=== PATIENT | male | born 1960 | race American Indian/Alaskan Native ===

== ENCOUNTER 2017-11-13 04:52 | Emergency (ER) | payer BC ==
[2017-11-13 05:34] LABS: Basophils # (Auto) 0.1 K/mm3 (0.0-0.1); Basophils % (Auto) 0.8 % (0.0-1.8); Eosinophils # (Auto) 0.2 K/mm3 (0.0-0.4); Eosinophils % (Auto) 1.8 % (0.0-4.3); Hematocrit 39.9 % (35.5-45.6); Hemoglobin 13.3 gm/dl (11.8-15.2); Lymphocytes # (Auto) 2.3 K/mm3 (1.2-5.4); Lymphocytes % (Auto) 25.5 % (13.4-35.0); Mean Corpuscular HGB Conc 33 % (32-34); Mean Corpuscular Hemoglobin 31 pg (28-32); Mean Corpuscular Volume 92 fl (84-94); Monocytes # (Auto) 0.5 K/mm3 (0.0-0.8); Monocytes % (Auto) 6.1 % (0.0-7.3); Platelet Count 325 K/mm3 (140-440); Red Blood Count 4.34 M/mm3 (3.65-5.03); Red Cell Distribution Width 13.1 % (13.2-15.2)
[2017-11-13 05:44] LABS: BUN/Creatinine Ratio 16; Blood Urea Nitrogen 11 mg/dL (9-20); Calcium 9.3 mg/dL (8.4-10.2); Hemolysis Index 5
--- NOTE | 2017-11-13 10:06 | XRay Report ---
LEFT FOOT, 3 views: History: Left foot pain. Articulation at the second metatarsophalangeal joint appears abnormal. There may be lateral subluxation and possible fracture at the base of the second toe. Please correlate with the images and the patient. The remaining bony structures are grossly intact. No erosive joint pathology. Mild degenerative changes are noted in the midfoot. Small plantar spur. IMPRESSION: Question abnormality of the second metatarsophalangeal joint as described.
--- NOTE | 2017-11-13 10:27 | Emergency Department Report ---
HPI - General Chief Complaint: Extremity Problem,Nontraumatic Time Seen by Provider: 11/13/17 09:40 - HPI HPI: 57-year-old -[place] male presents to the emergency department with swelling of the left foot and left foot pain since waking up this morning. He denies any recent trauma. He denies any skin color change or any lesions or rash. He's been using a set of crutches and limping around. He was dropped off to be seen by his . He has a medical history of diabetes on both pills and insulin. No recent travel or sick contacts at home. He does not have a primary care physician. He did not take anything for his symptoms prior presentation. ED Past Medical Hx - Past Medical History Previous Medical History?: Yes Hx Diabetes: Yes - Surgical History Past Surgical History?: No - Social History Smoking Status: Never Smoker Substance Use Type: None - Medications Home Medications: Home Medications Medication Instructions Recorded Confirmed Last Taken Type HYDROcodone/APAP 5-325 [[place] 1 each PO Q6H PRN #10 tablet 11/13/17 Unknown Rx 5-325 mg TAB] ED Review of Systems ROS: Stated complaint: FOOT PAIN Other details as noted in HPI Comment: All other systems reviewed and negative Constitutional: denies: chills, fever Eyes: denies: eye pain, eye discharge, vision change ENT: denies: ear pain, throat pain Respiratory: denies: cough, shortness of breath, wheezing Cardiovascular: denies: chest pain, palpitations Gastrointestinal: denies: abdominal pain, nausea, diarrhea Genitourinary: denies: urgency, dysuria Musculoskeletal: joint swelling, arthralgia Skin: denies: rash, lesions Neurological: denies: headache, weakness, paresthesias Physical Exam - Physical Exam Vital Signs: Vital Signs 11/13/17 11/13/17 04:54 05:04 Temperature 98.3 F 98.3 F Pulse Rate 71 71 Respiratory 18 18 Rate Blood Pressure 138/70 138/70 O2 Sat by Pulse 98 98 Oximetry ED Course Vital Signs 11/13/17 11/13/17 04:54 05:04 Temperature 98.3 F 98.3 F Pulse Rate 71 71 Respiratory 18 18 Rate Blood Pressure 138/70 138/70 O2 Sat by Pulse 98 98 Oximetry ED Medical Decision Making - Lab Data Result diagrams: 11/13/17 05:23 11/13/17 05:23 Critical care attestation.: If time is entered above; I have spent that time in minutes in the direct care of this critically ill patient, excluding procedure time. ED Disposition Clinical Impression: Left foot pain, Foot swelling Disposition: TO HOME OR SELFCARE Is pt being admited?: No Condition: Stable Instructions: Arthralgia (ED) Additional Instructions: Please follow up with a primary care physician in the next few days. I've given him a referral for a local emergency room technician, Dr. Freeman, and a local orthopedist, Dr. Masterson, to follow-up with regarding your foot pain. Return to the emergency Department with any worsening of her symptoms, development of any skin color change or ulcerations or wounds, or with any acute distress. You have been prescribed a medication that is sedating and therefore should not be taken prior to driving, working, and responsible for children and in no way should be mixed with alcohol of any quantity. Prescriptions: HYDROcodone/APAP 5-325 [[place] 5-325 mg TAB] 1 each PO Q6H PRN #10 tablet PRN Reason: Pain Referrals: PRIMARY CARE, [Primary Care Provider] - 3-5 Days SARAH FREEMAN DPM [Staff Physician] - 3-5 Days GAB MASTERSON MD [Staff Physician] - 3-5 Days Forms: Work/School Release Form(ED) Time of Disposition: 11:14
[2017-11-13] MEDS ORDERED: NORCO 5/325 PO ONE (11:11)
[2017-11-13 12:28] VITALS: BP 132/62
== END 2017-11-13 12:10 | disposition home or self-care (01) ==
LOC: ED 04:52
DX: M79.672 Pain in left foot (principal); E11.9 Type 2 diabetes mellitus without complications
CPT/HCPCS: 36415; 80048; 82962; 84550; 85025; 99285